=== PATIENT | male | born 1960 | race Caucasian/White ===

== ENCOUNTER 2017-01-15 12:07 | Emergency (ER) | payer MEDICARE, MEDICAID ==
[~2017-01-15] VITALS: Ht 175.3 cm; Wt 90.7 kg
[2017-01-15 12:40] LABS: Basophils # (auto) 0.1 uL; Basophils % (auto) 1.1 % (0.0-2.0); CONDITION Y; Eosinophils # (auto) 0.1 uL; Eosinophils % (auto) 1.3 % (0.0-7.0); Hematocrit 45.8 % (41.0-53.0); Hemoglobin 15.3 g/dL (13.5-17.5); Lymphocytes # (auto) 2.1 uL; Mean Corpuscular Hemoglobin 30.8 pg (28.0-32.0); Mean Corpuscular Hgb Conc. 33.4 g/dL (32.0-36.0); Mean Platelet Volume 8.6 fL (7.4-10.4); Monocytes # (auto) 0.8 uL; Monocytes % (auto) 8.5 % (0.0-12.0); Neutrophils # (auto) 6.8 uL; Neutrophils % (auto) 68.1 % (37.0-80.0); Platelet Count (auto) 278 10^3/uL (140-450)
[2017-01-15 13:01] LABS: Albumin 3.7 g/dL (3.4-5.0); Bilirubin, Total 0.2 mg/dL (0.2-1.0); Calcium 8.7 mg/dL (8.5-10.1); Total Protein 6.8 g/dL (6.4-8.2)
[2017-01-15] MEDS ORDERED: ALBUTEROL SULF 2.5 MG/0.5ML(0.5%) NEB SOLN HHN ONE (15:00)
[2017-01-15] MEDS ORDERED: IPRATROPIUM BROM 0.5 MG/2.5ML INH SOL HHN ONE (15:00)
[2017-01-15 15:48] LABS: B-Type Natriuretic Peptide 41.33 pg/mL (0-100)
[2017-01-15 15:54] LABS: Temperature: 24.1 C (20.0-25.0)
[2017-01-15 17:00] VITALS: BP 112/68
== END 2017-01-15 17:24 | disposition home or self-care (01) ==
LOC: ER 12:15
DX: J44.9 Chronic obstructive pulmonary disease, unspecified (principal); F17.210 Nicotine dependence, cigarettes, uncomplicated
CPT/HCPCS: 36415; 71020; 80053; 83880; 84484; 85025; 93005; 94640

== ENCOUNTER 2018-08-18 20:44 | Emergency (ER) | payer MEDICAID, MEDICARE ==
[~2018-08-18] VITALS: Ht 175.3 cm; Wt 83.9 kg
[2018-08-18 21:59] LABS: Urine Bacteria NONE SEEN /hpf (None Seen); Urine Blood Negative /uL (Negative); Urine Specific Gravity 1.029 (1.001-1.035); Urine WBC 1 /hpf (0 - 3)
[2018-08-18 22:15] LABS: Alcohol, Urine < 3.0 mg/dL (0-5); Amphetamine Screen, Urine POSITIVE (NEGATIVE); Barbiturate Scree,Urine NEGATIVE (NEGATIVE); Benzodiazephine Screen, Urine NEGATIVE (NEGATIVE); Cannabinoid Screen, Urine NEGATIVE (NEGATIVE); Cocaine Screen, Urine NEGATIVE (NEGATIVE); Opiate Scree,Urine NEGATIVE (NEGATIVE); Phencyclidine Screen, Urine NEGATIVE (NEGATIVE)
[2018-08-18 22:33] LABS: Alanine Aminotransferase 18 U/L (16-61); Albumin 3.4 g/dL (3.4-5.0); Anion Gap 9 (5-15); Aspartate Aminotransferase 16 U/L (15-37); Blood Alcohol < 3.0 mg/dL (0-5); Blood Urea Nitrogen 26 mg/dL (7-18); Calcium 8.4 mg/dL (8.5-10.1); Carbon Dioxide 24 mmol/L (21-32); Chloride 108 mmol/L (98-107); GFR African American 94 mL/min; GFR Non-African American 78 mL/min; Glucose 115 mg/dL (74-106); Potassium 3.4 mmol/L (3.5-5.1); Sodium 141 mmol/L (136-145)
[2018-08-18 22:35] LABS: Salicylate < 1.7 mg/dL (2.8-20.0)
[2018-08-18 22:36] LABS: Acetaminophen < 2.0 ug/mL (10-30); Alkaline Phosphatase 121 U/L (45-117); Bilirubin, Total 0.2 mg/dL (0.2-1.0); Total Protein 6.8 g/dL (6.4-8.2)
[2018-08-18 22:39] LABS: Basophils # (auto) 0 uL; Basophils % (auto) 0.6 % (0.0-2.0); Eosinophils # (auto) 0.1 uL; Eosinophils % (auto) 1.2 % (0.0-7.0); Hematocrit 41.9 % (41.0-53.0); Hemoglobin 14.2 g/dL (13.5-17.5); Lymphocytes # (auto) 1.9 uL; Lymphocytes % (auto) 25.6 % (10.0-50.0); Mean Corpuscular Hemoglobin 31.4 pg (28.0-32.0); Mean Corpuscular Hgb Conc. 33.8 g/dL (32.0-36.0); Mean Corpuscular Volume 92.8 fL (80.0-100.0); Monocytes # (auto) 0.5 uL; Monocytes % (auto) 6.5 % (0.0-12.0); Neutrophils % (auto) 66.1 % (37.0-80.0); Nucleated Red Blood Cells % 0.1 %; Platelet Count (auto) 254 10^3/uL (140-450); Red Blood Cells 4.52 10^6/uL (4.5-5.90); Red Cell Distribution Width 13.7 % (11.8-14.3); White Blood Cell 7.5 10^3/uL (4.4-10.8)
[2018-08-18] MEDS ORDERED: LORazepam 2MG/ML-1ML VIAL IV ONE (23:15)
[2018-08-19] MEDS ORDERED: NICOTINE 21MG/24 HR TOPICAL PATCH TD ONE ×2 (20:36→20:45)
[2018-08-19] MEDS ORDERED: LORazepam 2MG/ML-1ML VIAL IM ONE ×3 (21:00→23:15)
[2018-08-19] MEDS ORDERED: diphenhdrAMINE HCL 50 MG/1 ML VL IM ONE (21:00)
[2018-08-19] MEDS ORDERED: LORazepam 2MG/ML-1ML VIAL ONE (22:28)
[2018-08-20] MEDS ORDERED: LORazepam 2MG/ML-1ML VIAL IM ONE (07:45)
[2018-08-20] MEDS ORDERED: OLANZapine 5 MG TAB PO SCH (10:00)
[2018-08-20 18:18] VITALS: BP 134/96
== END 2018-08-20 18:15 | disposition short-term general hospital (02) ==
LOC: ER 20:44
DX: F32.9 Major depressive disorder, single episode, unspecified (principal); R45.851 Suicidal ideations; F19.10 Other psychoactive substance abuse, uncomplicated
CPT/HCPCS: 36415; 71045; 80053; 80307; 80320; 80329; 81001; 85025; 96372; 96374; 99285; J2060

== ENCOUNTER 2018-08-30 00:33 | Emergency (ER) | payer SELFPAY ==
[~2018-08-30] VITALS: Ht 175.3 cm; Wt 68.0 kg
[2018-08-30 01:00] VITALS: BP 105/78
== END 2018-08-30 04:14 | disposition left against medical advice (07) ==
LOC: ER 00:39
DX: F41.9 Anxiety disorder, unspecified (principal); F43.10 Post-traumatic stress disorder, unspecified; Z53.21 Procedure and treatment not carried out due to patient leaving prior to being seen by health care provider

== ENCOUNTER 2019-01-21 03:35 | Emergency (ER) | payer MEDICARE ==
[~2019-01-21] VITALS: Ht 154.9 cm; Wt 74.8 kg
[2019-01-21 04:06] VITALS: BP 114/77
[2019-01-21] MEDS ORDERED: KETOROLAC TROMETH 60MG/2ML VIAL IM ONE (04:30)
[2019-01-21] MEDS ORDERED: HYDROcodone-ACET 10/325MG TAB PO ONE (04:30)
== END 2019-01-21 06:40 | disposition home or self-care (01) ==
LOC: EDBD 03:35 → ER 03:37
DX: S33.5XXA Sprain of ligaments of lumbar spine, initial encounter (principal); F17.210 Nicotine dependence, cigarettes, uncomplicated; F15.10 Other stimulant abuse, uncomplicated; X58.XXXA Exposure to other specified factors, initial encounter; Y93.89 Activity, other specified; Y92.89 Other specified places as the place of occurrence of the external cause; Y99.8 Other external cause status
CPT/HCPCS: 96372; 99283; J1885

== ENCOUNTER 2019-01-25 08:10 | Emergency (ER) | payer MEDICARE ==
[~2019-01-25] VITALS: Ht 177.8 cm; Wt 79.4 kg
[2019-01-25 08:23] VITALS: BP 122/80
== END 2019-01-25 09:31 | disposition home or self-care (01) ==
LOC: EDBD 08:10 → EDUNIT# 08:10 → ER 08:10
DX: E86.0 Dehydration (principal); F17.210 Nicotine dependence, cigarettes, uncomplicated; F15.90 Other stimulant use, unspecified, uncomplicated; Z59.0 Homelessness

== ENCOUNTER 2019-02-20 23:31 | Emergency (ER) | payer SELFPAY ==
[~2019-02-20] VITALS: Ht 177.8 cm; Wt 81.6 kg
[2019-02-21 00:29] LABS: Basophils # (auto) 0.1 uL; Basophils % (auto) 0.8 % (0.0-2.0); Eosinophils # (auto) 0.1 uL; Eosinophils % (auto) 1.1 % (0.0-7.0); Hematocrit 37.9 % (41.0-53.0); Hemoglobin 12.7 g/dL (13.5-17.5); Lymphocytes # (auto) 1.8 uL; Lymphocytes % (auto) 20.3 % (10.0-50.0); Mean Corpuscular Hemoglobin 31.3 pg (28.0-32.0); Mean Corpuscular Hgb Conc. 33.6 g/dL (32.0-36.0); Monocytes # (auto) 0.7 uL; Monocytes % (auto) 8.1 % (0.0-12.0); Neutrophils # (auto) 6.3 uL; Neutrophils % (auto) 69.7 % (37.0-80.0); Nucleated Red Blood Cells % 0.1 %; Platelet Count (auto) 226 10^3/uL (140-450); Red Blood Cells 4.08 10^6/uL (4.5-5.90); Red Cell Distribution Width 15.2 % (11.8-14.3); White Blood Cell 9.1 10^3/uL (4.4-10.8)
[2019-02-21 00:30] VITALS: BP 111/76
[2019-02-21 00:47] LABS: Acetaminophen < 2.0 ug/mL (10-30); Albumin 3.6 g/dL (3.4-5.0); Anion Gap 8 (5-15); BUN/Creatinine Ratio 20.4; Blood Alcohol < 3.0 mg/dL (0-5); Blood Urea Nitrogen 19 mg/dL (7-18); Carbon Dioxide 26 mmol/L (21-32); Chloride 111 mmol/L (98-107); GFR African American 107 mL/min; GFR Non-African American 88 mL/min; Glucose 97 mg/dL (74-106); Magnesium 2.2 mg/dL (1.6-2.6); Potassium 3.5 mmol/L (3.5-5.1); Salicylate 2.1 mg/dL (2.8-20.0); Sodium 145 mmol/L (136-145)
[2019-02-21 00:50] LABS: Alanine Aminotransferase 24 U/L (16-61); Alkaline Phosphatase 85 U/L (45-117); Aspartate Aminotransferase 18 U/L (15-37); Bilirubin, Total 0.3 mg/dL (0.2-1.0); Total Protein 6.4 g/dL (6.4-8.2)
== END 2019-02-21 05:02 | disposition home or self-care (01) ==
LOC: ER 23:31 → EDBD 23:31 → ER 02-21 05:02
DX: T40.692A Poisoning by other narcotics, intentional self-harm, initial encounter (principal); S96.911A Strain of unspecified muscle and tendon at ankle and foot level, right foot, initial encounter; R11.0 Nausea; F17.210 Nicotine dependence, cigarettes, uncomplicated; F15.10 Other stimulant abuse, uncomplicated; Y92.89 Other specified places as the place of occurrence of the external cause
CPT/HCPCS: 36415; 71045; 73630; 80053; 80320; 80329; 83735; 85025

== ENCOUNTER 2019-05-26 22:48 | Inpatient (IN) | payer MEDICARE ==
[~2019-05-26] VITALS: Ht 175.3 cm; Wt 72.7 kg
[2019-05-26 23:54] LABS: Basophils # (auto) 0.1 uL; Basophils % (auto) 0.6 % (0.0-2.0); Eosinophils # (auto) 0.2 uL; Eosinophils % (auto) 1.4 % (0.0-7.0); Hematocrit 37.2 % (41.0-53.0); Hemoglobin 12.8 g/dL (13.5-17.5); Lymphocytes # (auto) 1.6 uL; Mean Corpuscular Hemoglobin 32.4 pg (28.0-32.0); Mean Corpuscular Hgb Conc. 34.3 g/dL (32.0-36.0); Mean Corpuscular Volume 94.4 fL (80.0-100.0); Neutrophils # (auto) 8.4 uL; Platelet Count (auto) 244 10^3/uL (140-450); Red Blood Cells 3.94 10^6/uL (4.5-5.90); Red Cell Distribution Width 14.4 % (11.8-14.3); White Blood Cell 11.2 10^3/uL (4.4-10.8)
[2019-05-27 00:13] LABS: Albumin 3.3 g/dL (3.4-5.0); BUN/Creatinine Ratio 24.5; Calcium 8.3 mg/dL (8.5-10.1); Magnesium 2.2 mg/dL (1.6-2.6); Potassium 3.8 mmol/L (3.5-5.1)
[2019-05-27 00:18] LABS: Bilirubin, Total 0.3 mg/dL (0.2-1.0); Total Protein 6.3 g/dL (6.4-8.2)
[2019-05-27] MEDS ORDERED: MORPHINE SULFATE 4 MG/ML SYR/VIAL IV PRN (08:00)
[2019-05-27] MEDS ORDERED: NITROGLYCERIN 0.4 MG SL TAB SL PRN ×3 (08:00→11:00)
[2019-05-27] MEDS ORDERED: ACETAMINOPHEN 325 MG TAB PO PRN (08:00)
[2019-05-27] MEDS ORDERED: ONDANSETRON HCL 4 MG/2 ML VIAL IV PRN (08:00)
[2019-05-27] MEDS ORDERED: MORPHINE SULF INJ 2 MG/ML SYRINGE 1ML IV PRN (08:00)
[2019-05-27 09:00] VITALS: BP 90/62
--- NOTE | 2019-05-27 09:25 | NUR ---
Telemetry admit from ER MARY,KARYN admitted to Telemetry unit after SBAR received. Patient oriented to EDDIE WEN RN primary RN, unit, room, bed, and unit policies regarding patient care and visiting hours. Patient now on continuous telemetry monitoring, tele box # [id number] and telemetry reading on arrival to unit is SR. weighed by bed-scale and encouraged to call if they need something. All questions and concerns addressed, patient verbalized understanding.
[2019-05-27] MEDS ORDERED: ALBUAER3 IN (09:48)
[2019-05-27] MEDS: METOPROLOL TARTRATE 25 MG TAB PO SCH ×2 (10:00→22:03)
[2019-05-27] MEDS ORDERED: LISINOPRIL 5 MG TAB PO SCH (10:00)
[2019-05-27] MEDS: ASPirin 81 mg TAB PO SCH (10:12)
[2019-05-27] MEDS: DOCUSATE SOD 100 MG CAP PO SCH (10:13)
--- NOTE | 2019-05-27 10:30 | NUR ---
ROUNDING MD Rosalina FLOYD AT BEDSIDE. ALL QUESTIONS AND CONCERNS ADDRESSED AT THIS TIME.
[2019-05-27 13:00] VITALS: BP 90/49
[2019-05-27 13:50] LABS: Basophils # (auto) 0.1 uL; Basophils % (auto) 0.7 % (0.0-2.0); Eosinophils # (auto) 0.1 uL; Eosinophils % (auto) 1.8 % (0.0-7.0); Hematocrit 37.3 % (41.0-53.0); Hemoglobin 12.5 g/dL (13.5-17.5); Lymphocytes # (auto) 1.8 uL; Lymphocytes % (auto) 22.2 % (10.0-50.0); Mean Corpuscular Hemoglobin 31.7 pg (28.0-32.0); Mean Corpuscular Hgb Conc. 33.5 g/dL (32.0-36.0); Mean Corpuscular Volume 94.7 fL (80.0-100.0); Monocytes # (auto) 0.7 uL; Monocytes % (auto) 9.4 % (0.0-12.0); Neutrophils # (auto) 5.2 uL; Neutrophils % (auto) 65.9 % (37.0-80.0); Platelet Count (auto) 227 10^3/uL (140-450); Red Blood Cells 3.94 10^6/uL (4.5-5.90); Red Cell Distribution Width 14.4 % (11.8-14.3); White Blood Cell 7.9 10^3/uL (4.4-10.8)
--- NOTE | 2019-05-27 15:41 | NUR ---
PT SIGNED AMA TO SMOKE. PT EDUCATED ABOUT SMOKING CESSATION AND THE NEGATIVE CONSEQUENCES OF SMOKING. PT VERBALIZED UNDERSTANDING AND IS STILL GOING TO GO DOWN TO SMOKE.
--- NOTE | 2019-05-27 16:05 | NUR ---
PT STILL DOWNSTAIRS TO SMOKE. PAGED SECURITY TO HAVE PT RETURN TO ROOM.
--- NOTE | 2019-05-27 16:18 | NUR ---
PT RETURNED TO ROOM FROM SMOKING
--- NOTE | 2019-05-27 16:28 | NUR ---
PT DOWNSTAIRS TO SMOKE. EDUCATED PT THAT HE MUST COME BACK IN 15 MINUTES OR HE WILL BE DISCHARGED AND HAVE TO GO BACK THROUGH THE EMERGENCY DEPARTMENT
[2019-05-27 17:00] VITALS: BP 104/60
--- NOTE | 2019-05-27 19:30 | NUR ---
PATIENT RETURNING TO THE FLOOR PATIENT RETURNED TO THE FLOOR AFTER GOING OUTSIDE TO SMOKE. PER ER AND ASSESSMENT PATIENT APPEARS HYPERACTIVE AND JITTERY. PATIENT HAS BEEN FOUND TALKING TO HIMSELF. PATIENT ACTIVELY DENIES TAKING METH AT THIS TIME. URINE SAMPLE OBTAINED AND SENT TO LAB. WILL AWAIT RESULTS AND WILL INFORM
--- NOTE | 2019-05-27 20:50 | NUR ---
PATIENT HAS AGAIN LEFT AMA TO GO SMOKE. PATIENT SINGING IN THE HALLWAYS AND DANCING. PATIENT STATES HE IS GOING TO SMOKE OUTSIDE AGAIN. INFORMED PATIENT TO RETURN IN 15 MINUTES. PATIENT VERBALIZES UNDERSTANDING. WILL AWAIT PATIENTS RETURN. INFORMED TELE MONITORS OF PATIENT'S STATUS.
[2019-05-27 21:15] LABS: Alcohol, Urine < 3.0 mg/dL (0-5); Amphetamine Screen, Urine NEGATIVE (NEGATIVE); Benzodiazephine Screen, Urine NEGATIVE (NEGATIVE); Cannabinoid Screen, Urine NEGATIVE (NEGATIVE); Cocaine Screen, Urine NEGATIVE (NEGATIVE); Opiate Scree,Urine NEGATIVE (NEGATIVE); Phencyclidine Screen, Urine NEGATIVE (NEGATIVE)
[2019-05-27 21:19] LABS: Barbiturate Scree,Urine NEGATIVE (NEGATIVE)
[2019-05-27] MEDS: ATORVASTATIN 20 MG TAB PO SCH (22:03)
[2019-05-27 22:05] VITALS: BP 111/65
--- NOTE | 2019-05-27 23:46 | NUR ---
PATIENT LEFT AMA AGAIN TO SMOKE INFORMED BY ER THAT PATIENT WILL NOT BE ALLOWED BACK UP IF HE COMES DOWN AGAIN. INFORMED PATIENT AND PATIENT VERBALIZED UNDERSTANDING. WILL CONTINUE TO MONITOR.
--- NOTE | 2019-05-28 04:23 | NUR ---
PATIENT CURRENTLY REFUSING SECOND IV. AFTER WAKING PATIENT FOR VITALS, PATIENT BEGAN TO RAISE HIS VOICE AND CURSE AND REFUSED VITALS. AFTER EDUCATING PATIENT ON NECESSITY OF VITALS AND SECOND IV PATIENT AGREED FOR VITALS BUT UPON ATTEMPT OF IV BEGAN TO USE OFFENSIVE LANGUAGE AND REFUSED THE IV. WILL INFORM DAYSHIFT RN.
[2019-05-28 04:38] VITALS: BP 98/59
--- NOTE | 2019-05-28 07:30 | NUR ---
Opening Shift Note Assumed care of patient, awake and alert. No S/S of distress/SOB. Pt denies having any pain at this time. Bed in lowest and locked position with side rails upx2 and call light in reach. Instructed on POC and to call for assist PRN, will continue to monitor for changes Q1hr and PRN.
--- NOTE | 2019-05-28 08:16 | NUR ---
IV insertion IV access obtained, via clean sterile technique by inserting 20 gauge catheter at RIGHT FA after 1 attempt(s). IV secured properly. No trauma to site. Patient tolerated well.
--- NOTE | 2019-05-28 08:22 | NUR ---
PT EDUCATED THAT SMOKING WILL AFFECT THE TEST RESULTS OF THE STRESS TEST. THE PATIENT EDUCATED ON THE RISKS OF SMOKING AND BENEFITS OF SMOKING CESSATION. THE PATIENT VERBALIZED UNDERSTANDING AND STATED "IM NOT GOING TO SMOKE" AND WALKED OFF THE UNIT TO THE ELEVATORS. NUCLEAR MED NOTIFIED.
[2019-05-28] MEDS ORDERED: ADENOSINE 61 MG in GIVE UN-DILUTED 0 ML IV STA (08:25)
--- NOTE | 2019-05-28 08:30 | NUR ---
RECEIVED CALL FROM NUCLEAR MEDICINE. PT DOWN FOR STRESS TEST.
[2019-05-28 09:00] VITALS: BP 110/57
[2019-05-28] MEDS: METOPROLOL TARTRATE 25 MG TAB PO SCH ×2 (10:00→21:54)
[2019-05-28] MEDS: ASPirin 81 mg TAB PO SCH (10:50)
[2019-05-28] MEDS: DOCUSATE SOD 100 MG CAP PO SCH (10:50)
[2019-05-28 13:06] VITALS: BP 116/79
--- NOTE | 2019-05-28 14:50 | NUR ---
assessment Patient is a 59 year old male who is alert and oriented. Prior to admission patient was homeless. Patient has no need for DME. Patient informed me he does not see a PCP. Kamilah Su to assign PCP. I informed patient Lisa Garrido SW1 will provide patient with homeless resources ans nursing home information. Patient would like nursing home if they have an opening. I informed patient he has a right to speak to a social staff worker regarding all care. I informed patient he has a right to participate in any and all discharge planning. Patient does not have a POA and advanced directive. I have offered patient information on POA and advanced directives. I informed the patient the advantages and benefits of having an Advanced Directive. Patient verbalized understanding and agreed to discharge plan. Addendum: 05/28/19 at 1452 by Kamilah GALLOWAY Amended: Links added.
[2019-05-28 17:00] VITALS: BP 110/73
--- NOTE | 2019-05-28 18:40 | NUR ---
PATIENT STATED THAT HE "LOST" HIS WRISTBAND. CALLED THE ER REGIST[facility] AND THEY WILL SEND UP A WRIST BAND FOR THE PATIENT. AWAITING WRISTBAND.
--- NOTE | 2019-05-28 19:00 | NUR ---
OPENING NOTE Received report from day shift RN. Patient is A&O X's 4 with no s/s of distress. Patient is pacing back and forth in room and is talking to self. Educated patient on POC and to use call light when in need of assistance. Patient verbalized understanding. Educated patient that if he goes down to smoke that he has to return within 10 minutes and to notify me before he leaves. Patient verbalized understanding. Applied new name wristband to patient. Will continue care.
[2019-05-28] MEDS: ATORVASTATIN 20 MG TAB PO SCH (21:54)
[2019-05-28 22:00] VITALS: BP 107/60
--- NOTE | 2019-05-29 02:56 | NUR ---
PATIENT HAS LEFT AMA TO GO SMOKE During rounds, patient was sitting on edge of bed talking to himself. Patient states he is going outside to smoke again. Informed patient to return within 15 minutes. Patient verbalized understanding.
--- NOTE | 2019-05-29 03:35 | NUR ---
PATIENT BACK INTO ROOM No s/s of distress. Patient was provided with crackers and milk. Will continue care..
[2019-05-29 05:39] VITALS: BP 102/68
--- NOTE | 2019-05-29 06:00 | NUR ---
PATIENT REMOVED IV Patient removed 20G IV to right FA. No trauma noted. Catheter was fully intact. Patient was excessively talking to self at this time. I asked him what was the problem. He stated, "this thing is bugging me. I am going to take it out." I instructed patient not to do that and I will tape it down more for him, since he was trying to explain that was the problem. Patient did not listen and took it out and threw it on the floor. Patient also threw one other thing he had in his hand. Educated patient that this was dangerous and not acceptable. I educated patient that he could have injured someone or himself and that security will be called next time he starts throwing objects. Patient stated something that was not comprehensible. Patient laid back down in bed and closed eyes. Will continue care.
[2019-05-29 09:00] VITALS: BP 98/64
[2019-05-29] MEDS: METOPROLOL TARTRATE 25 MG TAB PO SCH (10:00)
[2019-05-29] MEDS: DOCUSATE SOD 100 MG CAP PO SCH (10:14)
[2019-05-29] MEDS: ASPirin 81 mg TAB PO SCH (10:14)
[2019-05-29 13:00] VITALS: BP 102/64
[2019-05-29 13:03] VITALS: BP 102/64
--- NOTE | 2019-05-29 15:25 | NUR ---
Discharge instructions given as ordered. Encourage to follow up with PMD as instructed. All questions and concerns addressed. Patient verbalized understanding. Medication reconciliation form completed and copy given to patient. IV removed with catheter intact, pressure dressing applied. Telemetry unit returned to ICU. Patient taken to vehicle via wheelchair with all personal belongings, accompanied by staff and security. Taxi voucher, bus pass, and sack of sandwiches/ lucía crackers/milk/ orange juice provided. No distress noted at time of departure.
--- NOTE | 2019-05-30 08:10 | NUR ---
Received Social Service Counsult to see pt as he states he is homeless. The pt states he has been sleeping where he can find a place. The pt states he does receive $840.00 a month. He does not receive food stamps. Pt states he will not go to the care home. He does not have any identification. Pt was given the option of going to [facility] in [place] the pt stated no. Pt apparently has a drug problem and was asked if he wanted to go to [facility] for treatment. The pt stated no. Pt then said he would go back to where he came from. Offered pt a sack lunch which he accepted and a taxi ride.
== END 2019-05-29 15:25 | disposition home or self-care (01) | DRG 313 ==
LOC: EDBD 22:48 → ER 22:51 → TELE 22:52 → TELE-CENTR 05-27 09:10
PROVIDERS: ADMIT Hospitalist; ATTEND Internal Medicine
DX: R07.89 Other chest pain (principal); I50.42 Chronic combined systolic (congestive) and diastolic (congestive) heart failure; J20.9 Acute bronchitis, unspecified; S46.912A Strain of unspecified muscle, fascia and tendon at shoulder and upper arm level, left arm, initial encounter; F15.10 Other stimulant abuse, uncomplicated; J44.9 Chronic obstructive pulmonary disease, unspecified; Z59.0 Homelessness; X58.XXXA Exposure to other specified factors, initial encounter; Y93.89 Activity, other specified; Y92.89 Other specified places as the place of occurrence of the external cause; Y99.8 Other external cause status; F31.9 Bipolar disorder, unspecified
CPT/HCPCS: 36415; 71045; 78452; 80053; 80307; 83735; 83880; 84484; 85025; 85610; 85730; 87081; 93005; 93017; 93306; G0378; J0153

== ENCOUNTER 2019-07-22 03:14 | Emergency (ER) | payer SELFPAY ==
[~2019-07-22] VITALS: Ht 175.3 cm; Wt 74.8 kg
[~2019-07-22 03:14] MED LIST: ALBUAER3 IN
[2019-07-22 03:32] VITALS: BP 125/86
== END 2019-07-22 05:33 | disposition home or self-care (01) ==
LOC: ER 03:17
DX: M25.522 Pain in left elbow (principal); M25.552 Pain in left hip; F17.210 Nicotine dependence, cigarettes, uncomplicated; W19.XXXA Unspecified fall, initial encounter; Y93.89 Activity, other specified; Y92.89 Other specified places as the place of occurrence of the external cause; Y99.8 Other external cause status
CPT/HCPCS: 73080; 73502

== ENCOUNTER 2019-08-07 04:45 | Emergency (ER) | payer MEDICARE ==
[~2019-08-07] VITALS: Ht 170.2 cm; Wt 72.6 kg
[2019-08-07 07:24] VITALS: BP 129/81
[2019-08-07] MEDS ORDERED: METHOCARBAMOL 500 MG TAB PO ONE (07:30)
[2019-08-07] MEDS ORDERED: IBUPROFEN 800 MG TAB PO ONE (07:30)
== END 2019-08-07 08:16 | disposition home or self-care (01) ==
LOC: EDBD → ER 04:49
DX: G89.29 Other chronic pain (principal); M54.9 Dorsalgia, unspecified; R51 Headache; F17.210 Nicotine dependence, cigarettes, uncomplicated; J44.9 Chronic obstructive pulmonary disease, unspecified

== ENCOUNTER 2019-08-07 21:33 | Emergency (ER) | payer MEDICARE ==
[~2019-08-07] VITALS: Ht 170.2 cm; Wt 72.6 kg
[2019-08-07 22:26] VITALS: BP 134/74
== END 2019-08-08 05:17 | disposition left against medical advice (07) ==
LOC: ER 21:36 → EDBD 21:36 → ER 08-08 05:17
DX: M54.9 Dorsalgia, unspecified (principal); Z53.21 Procedure and treatment not carried out due to patient leaving prior to being seen by health care provider

== ENCOUNTER 2019-11-28 17:01 | Emergency (ER) | payer SELFPAY ==
[~2019-11-28] VITALS: Ht 175.3 cm; Wt 68.0 kg
[2019-11-28 17:08] VITALS: BP 135/81
[2019-11-28 17:53] LABS: Basophils # (auto) 0 10 ^3/uL (0-0.2); Basophils % (auto) 0.6 % (0.0-2.0); Eosinophils # (auto) 0.1 10 ^3/uL (0-0.8); Eosinophils % (auto) 1.7 % (0.0-7.0); Hematocrit 40.5 % (41.0-53.0); Hemoglobin 13.4 g/dL (13.5-17.5); Lymphocytes # (auto) 1.9 10 ^3/uL (0.4-5.4); Lymphocytes % (auto) 26.9 % (10.0-50.0); Mean Corpuscular Volume 94.1 fL (80.0-100.0); Monocytes # (auto) 0.5 10 ^3/uL (0-1.3); Neutrophils # (auto) 4.6 10 ^3/uL (1.6-8.6); Neutrophils % (auto) 63.8 % (37.0-80.0); Nucleated Red Blood Cells % 0.1 %; Platelet Count (auto) 301 10^3/uL (140-450); Red Cell Distribution Width 14.7 % (11.8-14.3); White Blood Cell 7.2 10^3/uL (4.4-10.8)
[2019-11-28 18:09] LABS: Albumin 3.3 g/dL (3.4-5.0); Anion Gap 4 (5-15); BUN/Creatinine Ratio 32.5; Blood Alcohol < 3.0 mg/dL (0-5); Blood Urea Nitrogen 27 mg/dL (7-18); Calcium 8.4 mg/dL (8.5-10.1); Carbon Dioxide 24 mmol/L (21-32); Chloride 112 mmol/L (98-107); GFR African American 122 mL/min; GFR Non-African American 100 mL/min; Glucose 99 mg/dL (74-106); Potassium 3.9 mmol/L (3.5-5.1); Sodium 140 mmol/L (136-145)
[2019-11-28 18:12] LABS: Alanine Aminotransferase 23 U/L (16-61); Alkaline Phosphatase 94 U/L (45-117); Aspartate Aminotransferase 24 U/L (15-37); Bilirubin, Total 0.2 mg/dL (0.2-1.0); Total Protein 6.5 g/dL (6.4-8.2)
[2019-11-28 18:13] LABS: Acetaminophen < 2.0 ug/mL (10-30); Salicylate 2.4 mg/dL (2.8-20.0)
== END 2019-11-28 19:42 | disposition left against medical advice (07) ==
LOC: ER 17:01
DX: F99 Mental disorder, not otherwise specified (principal); Z53.21 Procedure and treatment not carried out due to patient leaving prior to being seen by health care provider
CPT/HCPCS: 36415; 80053; 80320; 80329; 85025

== ENCOUNTER 2019-12-05 02:34 | Emergency (ER) | payer SELFPAY ==
[~2019-12-05] VITALS: Ht 175.3 cm; Wt 68.0 kg
[2019-12-05] MEDS ORDERED: KETOROLAC TROMETH 60MG/2ML VIAL IM ONE (04:45)
[2019-12-05] MEDS ORDERED: methylPREDNISolone SOD SUCC 125 MG/2 ML VL IM ONE (04:45)
[2019-12-05 04:46] VITALS: BP 110/77
== END 2019-12-05 06:07 | disposition home or self-care (01) ==
LOC: ER 02:36
DX: M51.36 Other intervertebral disc degeneration, lumbar region (principal); M17.11 Unilateral primary osteoarthritis, right knee; J44.9 Chronic obstructive pulmonary disease, unspecified; F17.210 Nicotine dependence, cigarettes, uncomplicated
CPT/HCPCS: 72131; 73562; 93005; 96372; 99284; J1885; J2930

== ENCOUNTER 2020-01-06 03:23 | Emergency (ER) | payer SELFPAY ==
[~2020-01-06] VITALS: Ht 172.7 cm; Wt 72.6 kg
[2020-01-06 03:33] VITALS: BP 106/70
== END 2020-01-06 04:51 | disposition left against medical advice (07) ==
LOC: ER 03:23
DX: G89.29 Other chronic pain (principal); M54.9 Dorsalgia, unspecified; Z53.21 Procedure and treatment not carried out due to patient leaving prior to being seen by health care provider

== ENCOUNTER 2020-01-28 10:23 | Emergency (ER) | payer SELFPAY ==
[~2020-01-28] VITALS: Ht 172.7 cm; Wt 68.0 kg
[2020-01-28 10:32] VITALS: BP 105/68
== END 2020-01-28 16:05 | disposition left against medical advice (07) ==
LOC: ER 10:23
DX: F15.10 Other stimulant abuse, uncomplicated (principal); M54.5 Low back pain; G89.29 Other chronic pain; F17.210 Nicotine dependence, cigarettes, uncomplicated; J44.9 Chronic obstructive pulmonary disease, unspecified; F41.9 Anxiety disorder, unspecified; F32.9 Major depressive disorder, single episode, unspecified

== ENCOUNTER 2021-05-20 07:45 | Emergency (ER) | payer MEDICARE ==
[~2021-05-20] VITALS: Ht 175.3 cm; Wt 83.9 kg
[2021-05-20 07:47] VITALS: BP 110/78
== END 2021-05-20 09:15 | disposition left against medical advice (07) ==
LOC: ER 07:45
DX: M54.9 Dorsalgia, unspecified (principal); Z53.21 Procedure and treatment not carried out due to patient leaving prior to being seen by health care provider

== ENCOUNTER 2021-10-06 08:38 | Emergency (ER) | payer MEDICAID, MEDICARE ==
[~2021-10-06] VITALS: Ht 175.3 cm; Wt 77.1 kg
[2021-10-06 09:45] LABS: Urine Bacteria NONE SEEN /hpf (None Seen); Urine Blood Negative /uL (Negative); Urine Mucus FEW (None Seen); Urine Specific Gravity 1.021 (1.001-1.035); Urine WBC 2 /hpf (0 - 3)
[2021-10-06 09:50] LABS: Opiate Scree,Urine NEGATIVE (NEGATIVE)
[2021-10-06 09:59] LABS: Amphetamine Screen, Urine POSITIVE (NEGATIVE); Barbiturate Scree,Urine NEGATIVE (NEGATIVE); Benzodiazephine Screen, Urine NEGATIVE (NEGATIVE); Cannabinoid Screen, Urine NEGATIVE (NEGATIVE); Cocaine Screen, Urine NEGATIVE (NEGATIVE); Phencyclidine Screen, Urine NEGATIVE (NEGATIVE)
[2021-10-06 10:04] LABS: Albumin 3.7 g/dL (3.4-5.0); Potassium 4.2 mmol/L (3.5-5.1)
[2021-10-06 10:05] LABS: Salicylate 2.4 mg/dL (2.8-20.0)
[2021-10-06 10:10] LABS: BUN/Creatinine Ratio 16.5; Bilirubin, Total 0.5 mg/dL (0.2-1.0)
[2021-10-06 10:13] LABS: Acetaminophen < 10.0 ug/mL (10-30)
[2021-10-06 10:16] LABS: Basophils # (auto) 0 10 ^3/uL (0-0.2); Basophils % (auto) 0.4 % (0.0-2.0); Eosinophils # (auto) 0 10 ^3/uL (0-0.8); Eosinophils % (auto) 0.7 % (0.0-7.0); Hematocrit 44.4 % (41.0-53.0); Hemoglobin 15.4 g/dL (13.5-17.5); Lymphocytes # (auto) 1.4 10 ^3/uL (0.4-5.4); Lymphocytes % (auto) 18.7 % (10.0-50.0); Mean Corpuscular Hemoglobin 32.2 pg (28.0-32.0); Mean Corpuscular Hgb Conc. 34.6 g/dL (32.0-36.0); Mean Corpuscular Volume 92.9 fL (80.0-100.0); Monocytes # (auto) 0.5 10 ^3/uL (0-1.3); Monocytes % (auto) 7.2 % (0.0-12.0); Neutrophils # (auto) 5.5 10 ^3/uL (1.6-8.6); Nucleated Red Blood Cells % 0.1 %; Red Blood Cells 4.78 10^6/uL (4.5-5.90); Red Cell Distribution Width 14.1 % (11.8-14.3); White Blood Cell 7.5 10^3/uL (4.4-10.8)
[2021-10-06 12:30] VITALS: BP 129/77
== END 2021-10-06 13:31 | disposition left against medical advice (07) ==
LOC: EDBD 08:38 → ER 08:38
DX: T43.211A Poisoning by selective serotonin and norepinephrine reuptake inhibitors, accidental (unintentional), initial encounter (principal); F15.10 Other stimulant abuse, uncomplicated; I50.9 Heart failure, unspecified; J44.9 Chronic obstructive pulmonary disease, unspecified; F17.210 Nicotine dependence, cigarettes, uncomplicated; Z79.899 Other long term (current) drug therapy; Y92.89 Other specified places as the place of occurrence of the external cause
CPT/HCPCS: 36415; 71045; 80053; 80307; 80329; 81001; 85025; 93005

== ENCOUNTER 2023-06-04 18:14 | Emergency (ER) | payer SELFPAY ==
[~2023-06-04] VITALS: Ht 175.3 cm; Wt 87.1 kg
[~2023-06-04 18:14] MED LIST changes: +RIVA20TA PO
[2023-06-04 19:32] VITALS: BP 110/69; PULSE 91; RESP 18; O2SAT 96
[2023-06-04] MEDS ORDERED: HYDROcodone-ACET 5/325MG TAB PO ONE (20:15)
[2023-06-04] MEDS ORDERED: AMOXICILLIN/CLAVUL 875 MG TAB PO ONE (20:15)
[2023-06-04] MEDS ORDERED: AUG875T PO ×2 (20:19→20:20)
[2023-06-04] MEDS ORDERED: RIV20T PO ×2 (20:19→20:20)
[2023-06-04] MEDS ORDERED: OFL50TS OT ×4 (20:19→20:28)
== END 2023-06-04 20:55 | disposition home or self-care (01) ==
LOC: ER 18:14
DX: H66.91 Otitis media, unspecified, right ear (principal); F17.210 Nicotine dependence, cigarettes, uncomplicated; F12.10 Cannabis abuse, uncomplicated; J44.9 Chronic obstructive pulmonary disease, unspecified; I50.9 Heart failure, unspecified; Z76.0 Encounter for issue of repeat prescription

== ENCOUNTER 2023-07-26 17:32 | Emergency (ER) | payer SELFPAY ==
[~2023-07-26] VITALS: Ht 177.8 cm; Wt 88.6 kg
[2023-07-26 17:32] VITALS: BP 128/83; PULSE 112; RESP 16; O2SAT 95
[~2023-07-26 17:32] MED LIST changes: +AUG875T PO; +OFL50TS OT; +RIV20T PO
[2023-07-27] MEDS ORDERED: RIVA10TA PO (23:20)
== END 2023-07-26 20:16 | disposition left against medical advice (07) ==
LOC: EDBD 17:32 → ER 17:32 → EDUNIT# 17:32 → ER 20:16
DX: R05.9 Cough, unspecified (principal); Z53.21 Procedure and treatment not carried out due to patient leaving prior to being seen by health care provider
CPT/HCPCS: 71045

== ENCOUNTER 2023-07-27 18:49 | Emergency (ER) | payer SELFPAY ==
[~2023-07-27] VITALS: Ht 170.2 cm; Wt 88.6 kg
[2023-07-27] MEDS ORDERED: RIVA10TA PO (23:20)
[2023-07-28 06:53] VITALS: BP 112/74; PULSE 109; RESP 20; TEMP 97.6; O2SAT 96
== END 2023-07-27 19:27 | disposition home or self-care (01) ==
LOC: ER 18:49
DX: I26.99 Other pulmonary embolism without acute cor pulmonale (principal); F41.9 Anxiety disorder, unspecified; J44.9 Chronic obstructive pulmonary disease, unspecified; F32.9 Major depressive disorder, single episode, unspecified; F20.9 Schizophrenia, unspecified; F17.210 Nicotine dependence, cigarettes, uncomplicated; Z76.0 Encounter for issue of repeat prescription; Z79.899 Other long term (current) drug therapy

== ENCOUNTER 2023-08-01 13:14 | Emergency (ER) | payer SELFPAY ==
[~2023-08-01] VITALS: Ht 170.2 cm; Wt 77.3 kg
[~2023-08-01 13:14] MED LIST changes: +RIVA10TA PO
[2023-08-01 14:09] VITALS: BP 127/75; PULSE 111; RESP 18; TEMP 98; O2SAT 96
[2023-08-01] MEDS ORDERED: AZIT-81 PO (15:18)
[2023-08-01] MEDS ORDERED: PROM1SOL4 PO (15:18)
[2023-08-01] MEDS ORDERED: BENZ100C97 PO (15:18)
== END 2023-08-01 15:43 | disposition home or self-care (01) ==
LOC: ER 13:14
DX: J40 Bronchitis, not specified as acute or chronic (principal); I50.9 Heart failure, unspecified; J44.9 Chronic obstructive pulmonary disease, unspecified; F41.9 Anxiety disorder, unspecified; F32.9 Major depressive disorder, single episode, unspecified; F20.9 Schizophrenia, unspecified; F17.210 Nicotine dependence, cigarettes, uncomplicated